=== PATIENT | female | born 1995 | race American Indian/Alaskan Native ===

== ENCOUNTER 2021-06-08 18:49 | Emergency (ER) | payer OTHER ==
[~2021-06-08] VITALS: Ht 162.6 cm; Wt 61.2 kg
[2021-06-08 19:00] VITALS: BP 106/61
[2021-06-08] MEDS ORDERED: PENICILLIN G BENZATHINE L-A 1.2 MU/2 ML SYR IM ONE (19:00)
[2021-06-08] MEDS ORDERED: KETOROLAC 30 MG/ML VIAL IM ONE (19:00)
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
[2021-06-08] MEDS ORDERED: IBUP-1842 PO (19:05)
--- NOTE | 2021-06-08 19:05 | NUR ---
PT AMBULATED TO [facility]
--- NOTE | 2021-06-08 19:26 | NUR ---
swabs collected and handed to Oriana NIEVES
== END 2021-06-08 19:45 | disposition home or self-care (01) ==
LOC: MED 18:49
DX: J02.0 Streptococcal pharyngitis (principal)
CPT/HCPCS: 87081; 96372; 99284; J0561; J1885